=== PATIENT | female | born 1930 | race Caucasian/White ===

== ENCOUNTER 2017-04-25 09:51 | Outpatient (CLI) | payer OTHER ==
[2016-07-01 20:23] VITALS: BMI 25.8
== END 2017-04-25 09:52 | disposition home or self-care (01) ==
LOC: LAB 09:51
PROVIDERS: ATTEND Internal Medicine
DX: R30.0 Dysuria (principal); R35.0 Frequency of micturition
CPT/HCPCS: 87086; 87186

== ENCOUNTER 2017-11-14 10:06 | Inpatient (IN) ==
[2017-11-14 11:54] VITALS: BMI 45.6
[2017-11-14] MEDS ORDERED: VISTARIL INJ IM PRN (11:58)
[2017-11-14] MEDS ORDERED: TYLENOL PO PRN (11:58)
[2017-11-14] MEDS ORDERED: MORPHINE 4 MG/ML VIAL IVP PRN (11:58)
[2017-11-14] MEDS ORDERED: TORADOL IVP PRN (11:58)
[2017-11-14] MEDS ORDERED: ATROPINE SULFATE PFS IVP PRN (11:58)
[2017-11-14] MEDS ORDERED: NITROSTAT SL PRN (11:58)
--- NOTE | 2017-11-14 14:17 | DI ---
EXAM: Single view of the chest. History: Chest pain. Comparison: Chest radiograph 11/12/2016, chest CT 07/01/2016 Findings: Heart is mildly enlarged. Atherosclerotic vascular calcifications. Left lower lobe subse gmental atelectasis or infiltrate and possible small left pleural effusion. No pneumothorax. No acu te osseous abnormalities. Impression: 1. Mild cardiomegaly. 2. Left lower lobe subsegmental atelectasis or pneumonia. 3. Possible small left pleural effusion
--- NOTE | 2017-11-14 14:29 | DI ---
EXAM: Three views of the left wrist. History: Left wrist pain. Findings: No acute fracture or dislocation. There is chondrocalcinosis within the triangular fibroc artilage. Osteopenia. Mild polyarticular joint space narrowing. Impression: 1. No acute osseous abnormality. 2. Chondrocalcinosis. 3. Mild polyarticular arthritis. 4. Osteopenia
[2017-11-14] MEDS: SOLU-MEDROL 125 MG IVP SCH ×2 (15:26→20:12)
[2017-11-14] MEDS: ROCEPHIN 1 GM in SODIUM CHLORIDE 50 ML IV SCH (15:26)
[2017-11-14] MEDS: DEXTROSE 5%-1/2NS IV SOLUTION 1,000 ML IV SCH (15:27)
[2017-11-14] MEDS ORDERED: CARAFATE PO SCH ×2 (17:00→20:00)
[2017-11-14] MEDS: MESALAMINE 400 MG PO SCH (20:12)
[2017-11-14] MEDS: TYLENOL PO SCH (20:13)
[2017-11-14] MEDS: BENADRYL PO SCH (20:13)
[2017-11-14] MEDS: ARICEPT PO SCH (20:13)
[2017-11-14] MEDS: NAMENDA PO SCH (20:13)
[2017-11-14] MEDS: CARAFATE PO SCH (20:13)
[2017-11-15] MEDS ORDERED: HALDOL IM ONE (06:11)
[2017-11-15] MEDS: SOLU-MEDROL 125 MG IVP SCH ×3 (06:17→20:25)
[2017-11-15] MEDS: PROTONIX PO SCH (06:18)
[2017-11-15] MEDS: DEXTROSE 5%-1/2NS IV SOLUTION 1,000 ML IV SCH (06:19)
[2017-11-15] MEDS: CARAFATE PO SCH ×2 (08:25→20:25)
[2017-11-15] MEDS: NAMENDA PO SCH ×2 (08:26→20:26)
[2017-11-15] MEDS: MESALAMINE 400 MG PO SCH ×2 (08:26→20:25)
[2017-11-15] MEDS: LIPITOR PO SCH (08:26)
[2017-11-15] MEDS: ASPIRIN EC PO SCH (08:26)
[2017-11-15] MEDS: HYZAAR 50-12.5 MG TAB PO SCH (08:26)
[2017-11-15] MEDS: RISPERDAL PO SCH ×2 (08:27→20:26)
[2017-11-15] MEDS: K-DUR PO SCH (08:27)
[2017-11-15] MEDS: PEPTO-BISMOL SUSP PO SCH ×3 (08:28→20:25)
[2017-11-15] MEDS: ROCEPHIN 1 GM in SODIUM CHLORIDE 50 ML IV SCH (08:33)
[2017-11-15] MEDS ORDERED: NON-FORMULARY MEDICATION (Losartan/Hydrochlorothiazide [Hyzaar 100-25 Tablet] 1 EACH) PO SCH (09:00)
[2017-11-15] MEDS ORDERED: ATORVASTATIN CALCIUM 20 MG PO SCH (09:00)
--- NOTE | 2017-11-15 09:23 | PCM.PROG ---
Attending Provider: ATTENDING PROVIDER: Dr. TALA BECKER DATE OF SERVICE: 11/15/17 SUBJECTIVE: This 86 year old WHITE/ F was hospitalized 11/14/17. The patient is hospitalized with acute gout type of arthritis. Left wrist is better. The patient is more confused this morning and given Haldol. The patient is calm now. The daughter is in the room. Chest x-ray showed left lower lobe atelectasis vs pneumonia, on Rocephin and steroids. REVIEW OF SYSTEMS: CONSTITUTIONAL: No night sweats. No fatigue, malaise, lethargy. No fever or chills. HEENT: Eyes: No visual changes. No eye pain. No eye discharge. ENT: No runny nose. No epistaxis. No sinus pain. No odynophagia. No congestion. RESPIRATORY: No cough, no congestion. No hemoptysis. No shortness of breath. CARDIOVASCULAR: No angina symptoms. No CHF symptoms. No atypical chest pain for CAD. No palpitations. No orthopnea.. GASTROINTESTINAL: No abdominal pain. No nausea or vomiting. No diarrhea or constipation. No hematemesis. No hematochezia. GENITOURINARY: No urgency. No frequency. No dysuria. No hematuria. No obstructive symptoms. No discharge. No pain. No significant abnormal bleeding. MUSCULOSKELETAL: No musculoskeletal pain; no joint swelling. NEUROLOGICAL: Awake, confused. No headache. No neck pain. No syncope. No seizures. No dizziness. PSYCHIATRIC: Not anxious. No depression. No suicidal thoughts. No homicidal thoughts. SKIN: No rash. No lesions. No wounds. ENDOCRINE: No unexplained weight loss. No weight gain. HEMATOLOGIC/LYMPHATIC: No anemia. No purpura. No petechiae. No prolonged or excessive bleeding. No palpable lymph nodes. PHYSICAL EXAMINATION: GENERAL: The patient is awake but confused lying in bed in no distress. VITAL SIGNS: Temperature 97.0 F, Pulse 67, Respiratory Rate 16, BP 127/62, Pulse Ox 94% HEENT: Head normocephalic, atraumatic. Eyes: Extraocular muscles are intact. Pupils are equal, round and reactive to light and accommodation. Ears: No lesions. Nose appeared normal. Throat: No exudate or erythema. NECK: Supple. No JVD, no carotid bruit. No lymphadenopathy or thyromegaly. LUNGS: Decreased breath sounds. Clear to auscultation. Percussion note normal. Chest symmetrical. HEART: S1, S2, no S3. No murmurs. No cyanosis or clubbing. No ascites. Pulses: Dorsalis pedis and posterior tibial pulses +1 to +2 both sides. ABDOMEN: Soft. Non-tender. Bowel sounds active. No CVA tenderness. No mass felt. EXTREMITIES: No edema. Full range of motion of all extremities, equal. NEUROLOGIC: No focal deficit. Cranial nerves II through XII are grossly intact. No headache, no double vision or headache. SKIN: Not dry. Intact. Turgor-normal. LYMPHATIC: No palpable lymph nodes/no lymphedema. MUSCULOSKELETAL: Normal joints with no swelling. Muscle tone is normal. LAB REVIEW: 11/15/17 04:30 11/15/17 04:30 11/15/17 04:30: Sodium 135 L, Potassium 3.4 L, Chloride 102, Carbon Dioxide 23, Anion Gap 13.4, BUN 19 H, Creatinine 0.90, Estimated GFR (MDRD) 60.00, BUN/ Creatinine Ratio 21.11, Glucose 323 H D, Calcium 9.6, Total Bilirubin 0.5, AST 15, ALT 13, Alkaline Phosphatase 64, Total Protein 6.9, Albumin 3.3 L, Globulin 3.6, Albumin/Globulin Ratio 0.92 11/15/17 04:30: WBC 9.78, RBC 4.09 L, Hgb 12.0, Hct 34.3 L, MCV 83.9, MCH 29.3, MCHC 35.0, RDW Coeff of Mathew 12.4, Plt Count 160, Immature Gran % (Auto) 0.8, Neut % (Auto) 90.6, Lymph % (Auto) 7.7 L, [place] % (Auto) 0.9, Eos % (Auto) 0.0, Baso % (Auto) 0.0, Immature Gran # (Auto) 0.1, Neut # 8.9 H, Lymph # 0.8, [place] # 0.1 L, Eos # 0.0, Baso # 0.0 11/14/17 13:45: Urine Color Yellow, Urine Clarity Clear, Urine pH 7.0, Ur Specific [place] 1.015, Urine Protein Negative, Urine Glucose (UA) Negative, Urine Ketones Negative, Urine Blood Trace-lysed, Urine Nitrite Negative, Urine Bilirubin Negative, Urine Urobilinogen 1.0, Ur Leukocyte Esterase 2+, Urine Microscopic WBC 0-2, Ur Squamous Epith Cells Not present 11/14/17 12:25: Sodium 139, Potassium 3.4 L, Chloride 102, Carbon Dioxide 30, Anion Gap 10.4, BUN 12, Creatinine 0.84, Estimated GFR (MDRD) 65.00, BUN/ Creatinine Ratio 14.28, Glucose 133 H, Calcium 9.8, Total Bilirubin 0.5, AST 20 , ALT 20, Alkaline Phosphatase 64, Total Protein 7.2, Albumin 3.4, Globulin 3.8 , Albumin/Globulin Ratio 0.89 11/14/17 12:25: Uric Acid 3.9 11/14/17 11:58: WBC 8.79, RBC 4.35, Hgb 12.7, Hct 37.8, MCV 86.9, MCH 29.2, MCHC 33.6, RDW Coeff of Mathew 12.8, Plt Count 149, Immature Gran % (Auto) 0.3, Neut % (Auto) 76.5, Lymph % (Auto) 13.5, [place] % (Auto) 6.9, Eos % (Auto) 2.3, Baso % (Auto) 0.5, Immature Gran # (Auto) 0.0, Neut # 6.7, Lymph # 1.2, [place] # 0.6, Eos # 0.2, Baso # 0.0 ASSESSMENT: 1. Pneumonitis being treated as above 2. Dementia 3. Blood sugar is elevated from steroids, will do A1C PLAN: 1. Risperdal 0.5 mg b.i.d. for diarrhea 2. Pepto-Bismol b.i.d. per Dr. Major 3. K-Tab 20 mEq p.o. daily 4. A1C 5. Stop IV fluids 6. Stop telemetry 7. Continue antibiotics and steroids Plan and coordination of the patient's care discussed in the presence of Valet Parker and nurse. CONDITION: Stable SCRIBED BY: CLOVIS ARGUETA Senior Technical Analyst scribed while in presence of service performed by Dr. TALA BECKER on 11/15/17 ([id number])
--- NOTE | 2017-11-15 11:29 | RS.OTINEVL ---
Subjective - Patient information Date of Evaluation: 11/15/17 Admitted From:: Home Diagnosis: Left wrist pain, gout Usual Living Arrangement: lives with spouse at [facility] Living Arrangement Comments: Lives at home with at [facility]. Pt completed sit to stand transfers to herself at [facility]. Pt's daughter came to help her get a sponge bath. Surgical History Comments:: Back surgeries x 2, Subjective Information/ Patient Comments:: My arm hurts. - Level of function Prior to this admission, the patient could do the following:: Partially Dependent Ambulation Abilities prior to this admission: Pt was able to complete stand pivot transfer from to bed. Pt's daughter helped with get a bath by putting her on a board and pushing her to the shower. Current Level of Function: Partially Dependent Current Equipment Used at Home: wheelchair Pain Assessment - Pain Pain Score: 0 Interventions - Objective Patient Orientation: Person, Situation Current Interventions: IV's Observation: Pt has weakness of BLE and in standing her legs have tremors. Interventions - ROM Right Upper Extremity AROM: WFL's Left Upper Extremity AROM: Slight limitation - Strength Right Upper Extremity Strength: Mild Weakness Left Upper Extremity Strength: Mild Weakness - Sensation Right Upper Extremity Sensation: Intact/Normal Left Upper Extremity Sensation: Intact/Normal Balance - Sitting Balance Static Sitting Balance: Fair Dynamic Sitting Balance: Fair - Standing Balance Static Standing Balance: Poor Dynamic Standing Balance: Poor - Comments Balance Assessment Comments: Pt is maximum assistance to stand x2. ADL Skills - Grooming Grooming: Mod Assist - Bathing Bathing UE: Mod Assist Bathing LE: Max Assist - Dressing Dressing UE: Mod Assist Dressing LE: Max Assist - Toilet Management Toileting Management: Max Assist, 2 person assist Functional Mobility - Bed Mobility Rolling R/L: Min Assist Scooting: Min Assist Supine to Sit: Min Assist Sit to Supine: Min Assist - Transfers Sit to Stand: Max Assist, 2 person assist Stand to Sit: Max Assist, 2 person assist Stand Pivot Transfers: Max Assist, 1 person assist - Ambulation Weight Bearing Status: FWB Assistance needed with Ambulation: Not Tested - Safety Awareness Safety Awareness: Good Additional Treatment Performed - Time with patient Total treatment time: 26 Activities Patient Interests:: Reading Books/Magazines, Bible Reading/Study Patient Education Patient Education: Education of diagnosis, Home Exercise Program, Education of Plan of Care Teaching Recipient: Patient, Family Teaching Methods: Teach Back Method Used, Demonstration Assessment Problem List:: Decreased level of function, Requires training/education, Decreased safety/Risk of falls, Weakness, Pain limits previous level of function Rehab Potential: Good Further Therapy Indicated?: Yes Short Term Goals - Goals GOAL 1: Pt to tolerate 15 minutes of BUE therex. Goal to be met by: 11/21/17 GOAL 2: Pt to complete stand pivot transfer from WC to toilet Minimal assistance. Goal to be met by: 11/21/17 GOAL 3: Pt to be independent with Home exercise program. Goal to be met by: 11/21/17 Fdc Goals GOAL 1: Pt to increase BUE strength to 4+/5. Goal to be met by: 11/23/17 GOAL 2: Pt to complete stand pivot transfer from WC to toilet CG assistance. Goal to be met by: 11/23/17 GOAL 3: Pt to increase independence of self care. Goal to be met by: 11/23/17 Plan Plan of Care: Therapeutic EX, Neuromuscular Re-Educ, Therapeutic Activity, Self- Care/Home Management Frequency of Treatment: 1-2 X day, as tolerated Duration of Treatment: 2 Weeks Anticipated Discharge Destination: Assisted Living Facility Has the Physician been added for Co-signature?: Yes
--- NOTE | 2017-11-15 11:51 | RS.PTINEVL ---
Subjective - Patient information Date of Evaluation: 11/15/17 Date of Arrival on Unit: 11/14/17 Admitted From:: Home Diagnosis: gout, pneumonia Usual Living Arrangement: lives with spouse at [facility] Living Arrangement Comments: Lives at home with at [facility] Home Environment: Level/No stairs Medical History: Hypertension, Arthritis Medical History Comments:: osteopenia, GERD LATEX ALLERGY?: No Surgical History: Lumbar Spine Surgical History Comments:: Back surgeries x 2, Subjective Information/ Patient Comments:: pt states her knees hurt when standing. She states she wants to try to do therapy to get stronger to go home. - Level of function Abilities prior to this admission: pt's states that pt was independent with w/c to/from bed, w/c to/from toilet transfers at [facility]. states that he had to assist pt into/ out of bed. Current Level of Function: Partially Dependent Current Equipment Used at Home: wheelchair Pain Assessement - Location B knees Description: Aching Pain Behavior: Rubbing Site, Facial Grimacing Pain Aggravating Factors: Exercise/Activity, Standing Interventions - Objective Patient Orientation: Person, Place Current Interventions: IV's Range of Motion - ROM Right Upper Extremity AROM: WFL's Left Upper Extremity AROM: WFL's Right Lower Extremity AROM: WFL's Left Lower Extremity AROM: WFL's Comments:: pt c/o pain with B knee flex Muscle Strength - Muscle Strength Right Upper Extremity Strength: Mild Weakness (shld flex 3+/5, elbow flex/ext 4- /5) Left Upper Extremity Strength: Mild Weakness (shld flex 3+/5, elbow flex/ext 4-/ 5) Right Lower Extremity Strength: Severe Weakness (hip flex 3+/5, knee flex/ext 3/ 5, ankle DF/PF 4-/5) Left Lower Extremity Strength: Severe Weakness (hip flex 3+/5, knee flex/ext 3/5 , ankle DF/PF 4-/5) Sensation - Sensation Right Upper Extremity Sensation: Intact/Normal Left Upper Extremity Sensation: Intact/Normal Right Lower Extremity Sensation: Intact/Normal Left Lower Extremity Sensation: Intact/Normal Palpation Palpation Findings: Tenderness (B knees) Balance - Sitting Balance and Reactions Static Sitting Balance: Fair Dynamic Sitting Balance: Fair Sitting Equilibrium Reactions: Delayed Left, Delayed Right Sitting Protective Reactions: Delayed Left, Delayed Right - Standing Balance and Reactions Static Standing Balance: Poor - Comments Balance Assessment Comments: pt unable to stand without mod to max assist of 2 Functional Mobility - Transfers Sit to Stand: Mod Assist, Max Assist, 2 person assist Stand to Sit: Mod Assist, 2 person assist Comments:: pt stood requires mod to max assist to remain standing. - Safety Awareness Safety Awareness: Fair Treatment time - Time with patient Total treatment time: 32 Patient Education - Education Patient Education: Education of diagnosis, Education of Plan of Care Teaching Recipient: Patient Teaching Methods: Discussion (Discussed with pt and POC ) Assessment - Assessment Problem List:: Decreased level of function, Requires training/education, Decreased safety/Risk of falls, Weakness, Pain limits previous level of function , Cognitive status limits abilities Rehab Potential: Good Further Therapy Indicated?: Yes Short Term Goals GOAL #1: pt demonstrate rolling and scooting up in bed with min x 1 Goal to be met by: 11/18/17 GOAL #2: pt transfer sup to/from sit mod x 1, sit to/from stand mod x 2 Goal to be met by: 11/18/17 GOAL #3: transfer bed to/from w/c with mod x 2 Goal to be met by: 11/18/17 Voucher Examiner Goals GOAL #1: pt demonstrate independence with rolling and scooting in bed Goal to be met by: 11/21/17 GOAL #2: pt transfer sup to/from sit min x 1, sit to/from stand mod x 1 Goal to be met by: 11/21/17 GOAL #3: Stand pivot w/c to/from bed min x 1 Goal to be met by: 11/21/17 Plan Plan of Care: Therapeutic EX, Therapeutic Activity, Self-Care/Home Management Other:: focus on transfer training Frequency of Treatment: 1-2 X day, as tolerated Duration of Treatment: 6 days Anticipated Discharge Destination: Home Has the Physician been added for Co-signature?: Yes
[2017-11-15] MEDS: TYLENOL PO SCH (20:26)
[2017-11-15] MEDS: BENADRYL PO SCH (20:26)
[2017-11-15] MEDS: ARICEPT PO SCH (20:26)
[2017-11-15] MEDS: HALDOL IM PRN (21:52)
[2017-11-16] MEDS: SOLU-MEDROL 125 MG IVP SCH ×2 (05:36→05:38)
[2017-11-16] MEDS: PROTONIX PO SCH (05:37)
[2017-11-16] MEDS: HALDOL IM PRN (05:53)
[2017-11-16] MEDS: ROCEPHIN 1 GM in SODIUM CHLORIDE 50 ML IV SCH (09:41)
[2017-11-16] MEDS: RISPERDAL PO SCH ×2 (10:03→20:35)
[2017-11-16] MEDS: ASPIRIN EC PO SCH (10:03)
[2017-11-16] MEDS: CARAFATE PO SCH ×2 (10:03→20:34)
[2017-11-16] MEDS: HYZAAR 50-12.5 MG TAB PO SCH (10:03)
[2017-11-16] MEDS: LIPITOR PO SCH (10:04)
[2017-11-16] MEDS: NAMENDA PO SCH ×2 (10:04→20:35)
[2017-11-16] MEDS: MESALAMINE 400 MG PO SCH ×2 (10:04→20:36)
[2017-11-16] MEDS: PEPTO-BISMOL SUSP PO SCH ×2 (10:06→20:35)
[2017-11-16] MEDS: K-DUR PO SCH ×2 (10:06→17:20)
[2017-11-16] MEDS: TYLENOL PO SCH (20:35)
[2017-11-16] MEDS: BENADRYL PO SCH (20:35)
[2017-11-16] MEDS: ARICEPT PO SCH (20:35)
[2017-11-17 05:22] VITALS: BP 151/85; TEMP 97.7
[2017-11-17] MEDS: PROTONIX PO SCH (05:31)
[2017-11-17] MEDS ORDERED: PREDNISONE PO SCH (08:00)
[2017-11-17] MEDS: CARAFATE PO SCH (09:29)
[2017-11-17] MEDS: PEPTO-BISMOL SUSP PO SCH (09:29)
[2017-11-17] MEDS: ROCEPHIN 1 GM in SODIUM CHLORIDE 50 ML IV SCH ×2 (09:29→10:16)
[2017-11-17] MEDS: LIPITOR PO SCH (09:30)
[2017-11-17] MEDS: MESALAMINE 400 MG PO SCH (09:30)
[2017-11-17] MEDS: ASPIRIN EC PO SCH (09:30)
[2017-11-17] MEDS: NAMENDA PO SCH (09:30)
[2017-11-17] MEDS: K-DUR PO SCH (09:30)
[2017-11-17] MEDS: HYZAAR 50-12.5 MG TAB PO SCH (09:30)
[2017-11-17] MEDS: RISPERDAL PO SCH (09:30)
[2017-11-17] MEDS ORDERED: KEFLEX PO SCH (10:30)
--- NOTE | 2017-11-17 10:42 | PCM.PROG ---
Attending Provider: ATTENDING PROVIDER: Dr. TALA BECKER This patient is seen with Marisol Fuller, Nurse Practitioner. DATE OF SERVICE: 11/16/17 SUBJECTIVE: This 86 year old WHITE/ F was hospitalized 11/14/17. The patient is sitting in the chair, alert. She is eating breakfast. Wrist swelling has improved. REVIEW OF SYSTEMS: CONSTITUTIONAL: No night sweats. No fatigue, malaise, lethargy. No fever or chills. HEENT: Eyes: No visual changes. No eye pain. No eye discharge. ENT: No runny nose. No epistaxis. No sinus pain. No odynophagia. No congestion. RESPIRATORY: No cough, no congestion. No hemoptysis. No shortness of breath. CARDIOVASCULAR: No angina symptoms. No CHF symptoms. No atypical chest pain for CAD. No palpitations. No orthopnea.. GASTROINTESTINAL: No abdominal pain. No nausea or vomiting. No diarrhea or constipation. No hematemesis. No hematochezia. GENITOURINARY: No urgency. No frequency. No dysuria. No hematuria. No obstructive symptoms. No discharge. No pain. No significant abnormal bleeding. MUSCULOSKELETAL: Left wrist pain improving. NEUROLOGICAL: Awake, alert, oriented to person only. No headache. No neck pain. No syncope. No seizures. No dizziness. PSYCHIATRIC: Not anxious. No depression. No suicidal thoughts. No homicidal thoughts. SKIN: No rash. No lesions. No wounds. ENDOCRINE: No unexplained weight loss. No weight gain. HEMATOLOGIC/LYMPHATIC: No anemia. No purpura. No petechiae. No prolonged or excessive bleeding. No palpable lymph nodes. PHYSICAL EXAMINATION: GENERAL: The patient is awake, alert oriented to person sitting in chair in no distress. VITAL SIGNS: Temperature 97.6 F, Pulse 80, Respiratory Rate 18, BP 162/88, Pulse Ox 94% HEENT: Head normocephalic, atraumatic. Eyes: Extraocular muscles are intact. Pupils are equal, round and reactive to light and accommodation. Ears: No lesions. Nose appeared normal. Throat: No exudate or erythema. NECK: Supple. No JVD, no carotid bruit. No lymphadenopathy or thyromegaly. LUNGS: Diminished breath sounds bilaterally. Clear to auscultation. Percussion note normal. Chest symmetrical. HEART: S1, S2, no S3. No murmurs. No cyanosis or clubbing. No ascites. Pulses: Dorsalis pedis and posterior tibial pulses +1 to +2 both sides. ABDOMEN: Soft. Non-tender. Bowel sounds active. No CVA tenderness. No mass felt. EXTREMITIES: No edema. Full range of motion of all extremities, equal. NEUROLOGIC: No focal deficit. Cranial nerves II through XII are grossly intact. No headache, no double vision or headache. SKIN: Not dry. Intact. Turgor-normal. LYMPHATIC: No palpable lymph nodes/no lymphedema. MUSCULOSKELETAL: Normal joints with no swelling. Muscle tone is normal. LAB REVIEW: 11/16/17 04:30 11/16/17 04:30 11/16/17 04:30: Sodium 136, Potassium 3.4 L, Chloride 100, Carbon Dioxide 25, Anion Gap 14.4, BUN 27 H, Creatinine 1.13, Estimated GFR (MDRD) 46.00, BUN/ Creatinine Ratio 23.89, Glucose 363 H, Calcium 10.2, Total Bilirubin 0.5, AST 33 , ALT 18, Alkaline Phosphatase 70, Total Protein 7.9, Albumin 3.9, Globulin 4.0 , Albumin/Globulin Ratio 0.98 11/16/17 04:30: WBC 14.66 H, RBC 4.65, Hgb 13.6, Hct 39.8, MCV 85.6, MCH 29.2, MCHC 34.2, RDW Coeff of Mathew 12.8, Plt Count 190, Immature Gran % (Auto) 0.6, Neut % (Auto) 93.0, Lymph % (Auto) 3.3 L, [place] % (Auto) 3.0, Eos % (Auto) 0.0, Baso % (Auto) 0.1, Immature Gran # (Auto) 0.1, Neut # 13.6 H, Lymph # 0.5 L, [place] # 0.4, Eos # 0.0, Baso # 0.0 ASSESSMENT: 1. Pneumonitis being treated as above 2. Dementia with behavioral disturbances 3. Hypokalemia 4. Blood sugar is elevated from steroids, will do A1C PLAN: 1. Potassium 20 mEq b.i.d. 2. Prednisone 20 mg b.i.d. 3. D/C Solu-Medrol Plan and coordination of the patient's care discussed in the presence of Senior Net Developer and nurse. CONDITION: Stable SCRIBED BY: CLOVIS ARGUETA Rubber Thread Spooler scribed while in presence of service performed by Dr. Becker/Marisol Fuller APRN on 11/16/17 ([id number])
--- NOTE | 2017-11-17 10:47 | PCM.PROG ---
Attending Provider: ATTENDING PROVIDER: Dr. TALA BECKER This patient is seen with Marisol Fuller, Nurse Practitioner. DATE OF SERVICE: 11/17/17 SUBJECTIVE: This 86 year old WHITE/ F was hospitalized 11/14/17. The patient is lying in bed resting comfortably. She has been eating well. She was not agitated last night. REVIEW OF SYSTEMS: CONSTITUTIONAL: No night sweats. Confusion. No fever or chills. HEENT: Eyes: No visual changes. No eye pain. No eye discharge. ENT: No runny nose. No epistaxis. No sinus pain. No odynophagia. No congestion. RESPIRATORY: No cough, no congestion. No hemoptysis. No shortness of breath. CARDIOVASCULAR: No angina symptoms. No CHF symptoms. No atypical chest pain for CAD. No palpitations. No orthopnea.. GASTROINTESTINAL: No abdominal pain. No nausea or vomiting. No diarrhea or constipation. No hematemesis. No hematochezia. GENITOURINARY: No urgency. No frequency. No dysuria. No hematuria. No obstructive symptoms. No discharge. No pain. No significant abnormal bleeding. MUSCULOSKELETAL: No musculoskeletal pain; no joint swelling. NEUROLOGICAL: Sleepy. No headache. No neck pain. No syncope. No seizures. No dizziness. PSYCHIATRIC: Not anxious. No depression. No suicidal thoughts. No homicidal thoughts. SKIN: No rash. No lesions. No wounds. ENDOCRINE: No unexplained weight loss. No weight gain. HEMATOLOGIC/LYMPHATIC: No anemia. No purpura. No petechiae. No prolonged or excessive bleeding. No palpable lymph nodes. PHYSICAL EXAMINATION: GENERAL: The patient is resting comfortably in bed in no distress. VITAL SIGNS: Temperature 97.7 F, Pulse 87, Respiratory Rate 14, BP 151/85, Pulse Ox 95% HEENT: Head normocephalic, atraumatic. Eyes: Extraocular muscles are intact. Pupils are equal, round and reactive to light and accommodation. Ears: No lesions. Nose appeared normal. Throat: No exudate or erythema. NECK: Supple. No JVD, no carotid bruit. No lymphadenopathy or thyromegaly. LUNGS: Diminished breath sounds. Clear to auscultation. Percussion note normal. Chest symmetrical. HEART: S1, S2, no S3. No murmurs. No cyanosis or clubbing. No ascites. Pulses: Dorsalis pedis and posterior tibial pulses +1 to +2 both sides. ABDOMEN: Soft. Non-tender. Bowel sounds active. No CVA tenderness. No mass felt. EXTREMITIES: No edema. Full range of motion of all extremities, equal. NEUROLOGIC: No focal deficit. Cranial nerves II through XII are grossly intact. No headache, no double vision or headache. SKIN: Not dry. Intact. Turgor-normal. LYMPHATIC: No palpable lymph nodes/no lymphedema. MUSCULOSKELETAL: Normal joints with no swelling. Muscle tone is normal. LAB REVIEW: 11/17/17 04:30 11/17/17 04:30 11/17/17 04:30: Sodium 136, Potassium 3.9, Chloride 104, Carbon Dioxide 27, Anion Gap 8.9, BUN 32 H, Creatinine 0.92, Estimated GFR (MDRD) 58.00, BUN/ Creatinine Ratio 34.78, Glucose 215 H D, Calcium 9.6, Total Bilirubin 0.3, AST 26, ALT 22, Alkaline Phosphatase 49 L, Total Protein 6.3, Albumin 3.1 L, Globulin 3.2, Albumin/Globulin Ratio 0.97 11/17/17 04:30: WBC 10.91 H, RBC 4.11 L, Hgb 12.1, Hct 35.4 L, MCV 86.1, MCH 29.4, MCHC 34.2, RDW Coeff of Mathew 13.1, Plt Count 163, Immature Gran % (Auto) 0.5, Neut % (Auto) 77.8, Lymph % (Auto) 14.4, [place] % (Auto) 7.2, Eos % (Auto) 0.0, Baso % (Auto) 0.1, Immature Gran # (Auto) 0.1, Neut # 8.5 H, Lymph # 1.6, [place] # 0.8, Eos # 0.0, Baso # 0.0 ASSESSMENT: 1. Pneumonitis being treated as above 2. Dementia with behavioral disturbances 3. Hypokalemia 4. Blood sugar is elevated from steroids, will do A1C PLAN: 1. Prednisone 10 mg daily for 5 days 2. Keflex 500 mg t.i.d. for one week 3. Xanax 0.25 mg in evening 4. Possible discharge today to [facility], will check with daughter 5. Continue Risperdal Plan and coordination of the patient's care discussed in the presence of Semiconductor Packages Tester and nurse. CONDITION: Stable SCRIBED BY: CLOVIS ARGUETA Textile Engineer scribed while in presence of service performed by Dr. Becker/Marisol Fuller APRN on 11/17/17 ([id number])
--- NOTE | 2017-11-17 11:55 | HP ---
DATE OF SERVICE: 11/14/17 HISTORY OF PRESENT ILLNESS: This is an 86-year-old female with left wrist pain, swollen, red and painful, unable to transfer herself. She is confused and has poor appetite. PAST MEDICAL HISTORY: Hypertension Dementia Sciatica GERD Anemia CKD Dyslipidemia DJD spine PAST SURGICAL HISTORY: Back surgery times 2 Breast reduction Gallbladder ? REVIEW OF SYSTEMS: CONSTITUTIONAL: Positive for fatigue. No fever. HEENT: No sinus drainage, no sore throat. RESPIRATORY: No cough. No hemoptysis. CARDIOVASCULAR: No atypical chest pain for coronary artery disease. No angina , CHF symptoms, palpitations or shortness of breath. GASTROINTESTINAL: No melena or abdominal pain. No GERD. GENITOURINARY: No hematuria, no polyuria. EXECUTIVE ADMINISTRATIVE ASST: No blackout, no dizziness, no headache, no double vision. Gait - wheelchair. MUSCULOSKELETAL: Osteoarthritis pain, left wrist joint swelling. ENDOCRINE: No weight loss, no weight gain. SKIN: Not dry, no rash. PSYCHIATRIC: Not anxious, no depression, no suicidal thoughts, no homicidal thoughts. SOCIAL HISTORY: Nonsmoker. . No alcohol use. Two children. No ilicit drug use. FAMILY HISTORY: Father . Mother . Brothers - 5. Sisters - 4. MEDICATIONS: Esomeprazole magnesium 40 mg one p.o. once daily Sucralfate 1 gm p.o. two times per day on an empty stomach Namenda XR 28 mg capsule one p.o. once daily Losartan-Hydrochlorothiazide 100-25 take one tablet p.o. once daily Donepezil 10 mg one tablet p.o. once daily in the evening Atorvastatin 20 mg one p.o. one time per day ALLERGIES: AMBIEN, AMOXICILLIN, CODEINE, FLAGYL, HYDROXYZINE, METRONIDAZOLE PHYSICAL EXAMINATION: V/S: Pulse 70, BP 130/60, temperature 98.8, 02 sat 97%. Height 5'10". GENERAL APPEARANCE: Oriented to person only. Pale, dry skin. HEENT: Normal. NECK: No JVP, no bruits. RESPIRATORY: Decreased breath sounds. Left wrist red, swollen, tender. CARDIOVASCULAR: S1, S2, no S3, no murmurs. No cyanosis, clubbing. No ascites. GI/ABDOMEN: Tenderness. Bowel sounds are active. EXTREMITIES: No edema, pulses +1, equal. EXECUTIVE ADMINISTRATIVE ASST: Deep tendon reflexes, sensory, motor and gait all normal. RECTAL/PELVIC: Colonoscopy screening - Dr. Major 02/12. Pelvic advised yearly. Mammogram 07/19 Marni. ASSESSMENT: 1. ACUTE GOUT LEFT WRIST PAIN/SWELLING, CELLULITIS 2. CHANGE IN MENTAL STATUS, CONFUSED 3. HYPERTENSION 4. DEMENTIA 5. SCIATICA 6. OSTEOARTHRITIS KNEES 7. OSTEOPOROSIS 8. GERD 9. ANEMIA 10. ULCERATIVE COLITIS 11. DYSLIPIDEMIA 12. CKD 13. DJD SPINE (Sciatica) PLAN: 1. Admit 2. Routine telemetry, no cardiac markers 3. CBC, CMP daily 4. Uric acid serum 5. Solu-Medrol 100 mg IV q.8hr 6. UA 7. D5 11/07 NS @ 75 cc/hr 8. Toradol 30 mg IV q.8hr p.r.n. 9. Chest x-ray 10. X-ray left wrist 11. Rocephin 1 gn IV daily TIME SPENT: More than 70 minutes. MTDD
--- NOTE | 2017-11-20 08:48 | CM.DICTOOL ---
ADMISSION: 11/14/17 15:56 DISCHARGE: 2017 DATE OF SERVICE: 11/17/17 FINAL DIAGNOSIS Cellulitis, left wrist Osteoarthritis Atelectasis/Pneumonitis per CXR Mental Status Change Dementia Hypertension GERD Hypokalemia Lumbar Surgery x 2 LAST VITALS Temp Pulse Resp BP Pulse Ox 97.7 F 87 14 151/85 H 95 11/17/17 05:22 11/17/17 05:22 11/17/17 07:19 11/17/17 05:22 11/17/17 05:22 ACTIVE HOME MEDICATIONS Atorvastatin Calcium (Lipitor) 20 mg PO DAILY [facility] Last Admin: 11/17/17 09:30 Dose: 20 mg Cephalexin (Keflex) 500 mg PO Q8HR [facility] Stop: 11/23/17 17:00 (new) Diphenhydramine HCl (Benadryl) 25 mg PO BEDTIME [facility] Last Admin: 11/16/17 20:35 Dose: 25 mg Donepezil HCl (Aricept) 10 mg PO BEDTIME [facility] Last Admin: 11/16/17 20:35 Dose: 10 mg HCTZ/Losartan Potassium (Hyzaar 50-12.5 Mg Tab) 2 tab PO DAILY [facility] Last Admin: 11/17/17 09:30 Dose: 2 tab Memantine (Namenda) 10 mg PO BID [facility] Last Admin: 11/17/17 09:30 Dose: 10 mg Non-Formulary Medication (Mesalamine [Mesalamine]) 400 mg pe PO BID [facility] Last Admin: 11/17/17 09:30 Dose: 400 mg pe Nexium 20 mg PO BID [facility] Last Admin: Sucralfate (Carafate) 2 gm PO [id number],[id number] [facility] Last Admin: 11/17/17 09:29 Dose: 2 gm Pepto-Bismol 30 ml BID PRN Last Admin: 11/16/2017 at 20:35 ALLERGIES amoxicillin [Amoxicillin] Adverse Reaction (Intermediate, Unverified 08/19/14 08 :42) Nausea metronidazole [From Flagyl] Adverse Reaction (Intermediate, Unverified 08/19/14 08:42) Diarrhea ciprofloxacin [From Cipro] Adverse Reaction (Verified 07/01/16 20:26) levofloxacin [From Levaquin] Adverse Reaction (Verified 07/01/16 20:26) Quinolones Adverse Reaction (Verified 08/26/16 20:26) ambiem Allergy (Mild, Uncoded 08/19/14 08:40) Rash codiene Adverse Reaction (Mild, Uncoded 08/19/14 08:42) Rash NEW PRESCRIPTIONS: Xanax 0.25 mg at bedtime Keflex 500 mg TID for 7 days. First dose today Prednisone 10 mg Daily for 5 days Risperdal 0.5 mg BID Potassium 20 mg daily SMOKING: Not Applicable DISEASE SPECIFIC EDUCATION: Not Applicable due to patient confusion LAB REVIEW: 11/17/17 04:30 11/17/17 04:30 11/17/17 04:30: Sodium 136, Potassium 3.9, Chloride 104, Carbon Dioxide 27, Anion Gap 8.9, BUN 32 H, Creatinine 0.92, Estimated GFR (MDRD) 58.00, BUN/ Creatinine Ratio 34.78, Glucose 215 H D, Calcium 9.6, Total Bilirubin 0.3, AST 26, ALT 22, Alkaline Phosphatase 49 L, Total Protein 6.3, Albumin 3.1 L, Globulin 3.2, Albumin/Globulin Ratio 0.97 11/17/17 04:30: WBC 10.91 H, RBC 4.11 L, Hgb 12.1, Hct 35.4 L, MCV 86.1, MCH 29.4, MCHC 34.2, RDW Coeff of Mathew 13.1, Plt Count 163, Immature Gran % (Auto) 0.5, Neut % (Auto) 77.8, Lymph % (Auto) 14.4, Hughes % (Auto) 7.2, Eos % (Auto) 0.0, Baso % (Auto) 0.1, Immature Gran # (Auto) 0.1, Neut # 8.5 H, Lymph # 1.6, Hughes # 0.8, Eos # 0.0, Baso # 0.0 PLAN: Discharge to [facility] Diet: Regular as tolerated Activity: Up to dining room for meals at least 2 times daily Physical and Occupational Therapy Evaluation and treat Vital Signs daily for 1 week, then weekly Decubitus Precautions Encourage toileting every 2 hours Labs: CBC, CMP in one week, then monthly Lipids, TSH, Free T4 every 6 months Marisol Fuller APRN or Dr. Harvey to see on nursing rounds in 7-10 days. Mrs. Johnson is alert to person only. She is cooperative with care and is able to feed herself. Meal intakes 50-100%. No difficulty swallowing or chewing noted. She is dependent for personal care. She is continent/incontinent of urine. She is continent of bowel. Last stool on 11-16-2017. She is able to turn herself in the bed. She requires assistance of 2 staff members for transfers from the bed to the chair. She is noted to have difficulty advancing her legs. Skin is intact and free of decubitus ulcers, rashes or open areas. Dr. Seun Harvey MD Marisol Fuller APRN
--- NOTE | 2017-11-23 10:44 | PN ---
DATE OF SERVICE: 11/16/17 SUBJECTIVE: 86-year-old white female hospitalized with acute gout of the left wrist, confusion, change in mental status. The patient had infiltrate and is being treated with antibiotics and steroids. The patient is being placed in the intermediate. Condition stable. The patient was seen and examined with nurse practitioner. TIME SPENT: More than 30 minutes. Plan and coordination of the patient's care discussed in the presence of nurse. ROXANNE
--- NOTE | 2017-11-23 10:46 | PN ---
DATE OF SERVICE: 11/17/17 SUBJECTIVE: 86-year-old white female was hospitalized with acute gout, confusion, change in mental status. The patient's condition has improved. She is stable. The family is willing to transfer the patient today to the [facility]. She will be discharged on Keflex. She was seen and examined with the nurse practitioner. CONDITION: Stable. TIME SPENT: More than 30 minutes. Plan and coordination of the patient's care discussed in the presence of nurse. ROXANNE
--- NOTE | 2017-11-23 10:48 | PN ---
CODING FOR BILLING 11/14/17 LEVEL 5 11/15/17 INTERMEDIATE 11/16/17 INTERMEDIATE 11/17/17 DISCHARGE MTDD
--- NOTE | 2017-12-13 10:59 | DS ---
DATE OF SERVICE: 11/17/17 FINAL DIAGNOSIS: 1. CELLULITIS OF THE LEFT WRIST 2. OSTEOARTHRITIS 3. ATELECTASIAS/PNEUMONITIS PER CHEST X-RAY 4. MENTAL STATUS CHANGE 5. DEMENTIA 6. HYPERTENSION 7. GASTROESOPHAGEAL REFLUX DISEASE 8. HYPOKALEMIA 9. LUMBAR SURGERY TIMES TWO VITAL SIGNS AT DISCHARGE: Temperature 97.7, pulse 87, respiratory rate 14, blood pressure 151/85 and pulse oximetry 95%. MEDICATIONS: Lipitor 20 mg Keflex 500 mg every 8 hours Benadryl 25 mg at bedtime Aricept 10 mg at bedtime Hyzaar 50/12.5 mg two tabs daily Namenda 10 mg twice daily Mesalamine 400 mg twice daily Nexium 20 mg twice daily Carafate 2 grams twice daily as scheduled Pepto-Bismol 30 ml twice daily prn ALLERGIES: Amoxicillin, Flagyl, Cipro, Levaquin, Quinolones, Ambien and Codeine. NEW PRESCRIPTIONS: Xanax 0.25 mg at bedtime Keflex 500 mg three times daily for 7 days. Take the 1st dose today. Prednisone 10 mg times five days Risperdal 0.5 mg twice daily Potassium 20 mg daily SMOKING: N/A DISEASE SPECIFIC EDUCATION: Not applicable due to the patient's condition. LABS: BUN 32, creatinine 0.92, glucose 215, WBC 10.91, RBC 4.11, hemoglobin 12.1, hematocrit 35.4 and platelet count 163. PLAN: 1. Discharge the patient to [facility]. 2. Diet: Regular as tolerated. 3. Activity: Up to the dining room for meals at least two times daily. 4. PT/OT to evaluate and treat. 5. Vital signs daily for one week and then weekly. 6. Decubitus precautions. 7. Encourage toileting every 2 hours. 8. Labs: CBC, CMP in one week and then monthly. Lipids, TSH, Free T4 every 6 months. 9. Marisol Fuller APRN or Dr. Harvey to see on [facility] rounds in 7-10 days. HOSPITAL COURSE: This is a white female who is a direct admit from our office. She had currently been living at the assisted living home with her . She had experienced a fall and had some bruising and swelling to her left wrist. She has had dementia for some time but it is gradually worsening. She is becoming extremely weak and unable to transfer herself from the bed to the wheelchair to walk. She was admitted. Chest x-ray revealed small questionable pneumonia. She was started on Rocephin 1 gm IV daily. Over the course of her hospital stay, initially her kidney function was elevated showing mild dehydration. She was evaluated by physical therapy and it was found that she would benefit. It was decided by her family that it would be appropriate to send her to the [facility]. A bed was found at [facility] and she is going to go there after discharge today. She received three days of Rocephin along with Solu- Medrol 100 mg q.12 IV. She received Toradol 30 mg IV q.8hr for pain. While she was here she did experience some worsening confusion. She became combative in the evenings. She was given Haldol 0.5 mg. We started her on Risperdal 0.5 mg b.i.d. along with Ativan 0.5 mg b.i.d. These will both be continued at the [facility] in order to combat her confusion and agitation. She will be discharged to [place] in stable condition. Will continue the Keflex for 7more days for possible pneumonia along with Prednisone 10 mg daily for 5 days. She is to have a repeat CBC and CMP in one week and then we will do labs every 2 to 3 months. Fall precautions will continue again. Will continue Risperdal and Ativan at the [facility] as well. We will followup with her there. TIME SPENT: More than 60 minutes. ROXANNE
== END 2017-11-17 11:00 | DRG 602 ==
LOC: UNDOADMIN 10:06 → MEDSURG A 10:06
PROVIDERS: ADMIT Internal Medicine; ATTEND Internal Medicine
DX: L03.114 Cellulitis of left upper limb (principal); J18.9 Pneumonia, unspecified organism; J98.11 Atelectasis; F05 Delirium due to known physiological condition; F03.91 Unspecified dementia, unspecified severity, with behavioral disturbance; E86.0 Dehydration; E87.6 Hypokalemia; M19.90 Unspecified osteoarthritis, unspecified site; K21.9 Gastro-esophageal reflux disease without esophagitis; M10.9 Gout, unspecified; R73.9 Hyperglycemia, unspecified; W19.XXXA Unspecified fall, initial encounter; Z98.890 Other specified postprocedural states; Z79.899 Other long term (current) drug therapy; Y92.89 Other specified places as the place of occurrence of the external cause
CPT/HCPCS: 36415; 80053; 81001; 83036; 84550; 85025; 93005; 93010; 99223; 99232; 99239

== ENCOUNTER 2017-12-12 13:11 | Outpatient (CLI) | END 2017-12-12 13:12 | disposition home or self-care (01) | LOC: NONPT 13:11 | PROVIDERS: ATTEND Emergency Medicine | DX: R41.0 Disorientation, unspecified (principal); R53.1 Weakness | CPT/HCPCS: 80053; 85025 ==

== ENCOUNTER 2017-12-14 12:03 | Outpatient (CLI) | END 2017-12-14 12:04 | disposition home or self-care (01) | LOC: NONPT 12:03 | PROVIDERS: ATTEND Internal Medicine | DX: J18.9 Pneumonia, unspecified organism (principal); R41.82 Altered mental status, unspecified; R30.0 Dysuria | CPT/HCPCS: 81001; 87086 ==

== ENCOUNTER 2018-03-22 08:54 | Outpatient (CLI) | payer OTHER | END 2018-03-22 08:55 | disposition home or self-care (01) | LOC: NONPT 08:54 | PROVIDERS: ATTEND Internal Medicine | DX: R30.0 Dysuria (principal) | CPT/HCPCS: 81001; 87086 ==

== ENCOUNTER 2018-06-15 17:15 | Outpatient (CLI) | END 2018-06-15 17:16 | disposition home or self-care (01) | LOC: NONPT 17:15 | PROVIDERS: ATTEND Internal Medicine | DX: R50.9 Fever, unspecified (principal); R30.0 Dysuria | CPT/HCPCS: 81001; 87086; 87186 ==

== ENCOUNTER 2018-08-30 07:27 | Outpatient (CLI) | payer OTHER | END 2018-08-30 07:28 | disposition home or self-care (01) | LOC: NONPT 07:27 | PROVIDERS: ATTEND Internal Medicine | DX: R30.0 Dysuria (principal) | CPT/HCPCS: 81001; 87086; 87186 ==